=== PATIENT | male | born 1955 | race Caucasian/White ===

== ENCOUNTER 2022-02-26 19:07 | Emergency (ER) | payer MEDICARE, BC ==
[~2022-02-26] VITALS: Ht 180.3 cm; Wt 109.5 kg
[~2022-02-26 19:07] MED LIST: ALTACE 10MG TAB10 MG PO; ASPIRIN E.C. 8181 MG PO; B-121000 MCG PO; BACTROBAN 22GM22 GM TP; CEPHALEXIN500 M1 PO; CIPRO 500MG TA500 MG PO; CO Q-1050 MG PO; FERROUS SU325 MG/TAB PO; FLAXSEED OIL1300 MG PO; FOLIC ACID 40400 MCG PO; GLUCOPHAGE500 MG/TAB PO; GLUCOVANCE 2.51 TAB PO; GLUCOVANCE 5 MG1 TAB PO; LANTUS100 U/ML SC; MAXEPA1000 MG PO; MEGA MULTI1 TAB PO; MEVACOR40 MG PO; MOBIC 7.5MG7.5 MG PO; NIACIN500 MG PO; NUTRAVESCENT1000 MG PO; SAW PALMETTO500 MG PO; SEPTRA DS 8001 TAB PO; TYLENOL 325MG325 MG PO; VITAMIN C500 MG PO; ZYRTEC 10MG10 MG PO
[2022-02-26 19:16] VITALS: TEMP 97.1
[2022-02-26 20:22] VITALS: BP 148/78; PULSE 76
== END 2022-02-26 20:24 | disposition home or self-care (01) ==
LOC: COL.ER 19:07
DX: S93.111A Dislocation of interphalangeal joint of right great toe, initial encounter (principal); W22.8XXA Striking against or struck by other objects, initial encounter